=== PATIENT | male | born 2000 | race Caucasian/White ===

== ENCOUNTER 2022-09-03 09:30 | Emergency (ER) | payer OTHER ==
[~2022-09-03] VITALS: Ht 180.3 cm; Wt 6.8 kg
[2022-09-03 09:48] VITALS: BP 142/92
== END 2022-09-03 12:40 | disposition left against medical advice (07) ==
LOC: ED 09:30
DX: R21 Rash and other nonspecific skin eruption (principal); R42 Dizziness and giddiness; R06.02 Shortness of breath